=== PATIENT | male | born 1980 | race Caucasian/White ===

== ENCOUNTER 2021-01-03 06:00 | Outpatient (CLI) | payer OTHER, SELFPAY | END 2021-01-03 06:01 | disposition home or self-care (01) | LOC: SPT 12-11 10:45 | PROVIDERS: PCP Nurse Practitioner Family; Referring Provider Orthopaedic Surgery Pediatric Orthopaedic Surgery; Visit Provider Orthopaedic Surgery Pediatric Orthopaedic Surgery | DX: Z46.89 Encounter for fitting and adjustment of other specified devices (principal); S93.401S Sprain of unspecified ligament of right ankle, sequela; X58.XXXS Exposure to other specified factors, sequela | CPT/HCPCS: 97760; L1902 ==

== ENCOUNTER 2021-01-23 14:26 | Outpatient (CLI) | payer OTHER, SELFPAY ==
--- NOTE | 2021-01-23 14:33 | MR_ITS ---
WS: [id number] MRI RIGHT FOOT without CONTRAST. There is a very small amount of increased fluid signal adjacent to the anterior and posterior talofib ular ligaments. These are often have a normal striated appearance. No tears are identified. COMPARISON: RIGHT foot radiograph 01/03/2021 Multiplanar, multisequence imaging is performed without contrast. 2 markers are placed in the area of pain. One of these markers is lateral and adjacent to the peronea l tendons just distal to the fibular tip. There is an additional palpable marker placed along the janie sirena foot at the level of the tarsal bones. Peroneus longus and brevis tendons course normally. There is a very small amount of increased signal in the peroneal tendon sheath at the site of pain. No tear is identified. This may represent a mild t endinopathy. No fracture or abnormality at the fifth metatarsal tuberosity or the first metatarsal. There is no marrow edema or fractures. Marker over the dorsal midfoot demonstrates no underlying sign al abnormalities. There is no marrow edema or fluid in the tendon sheath. There is a small amount of fluid near the anterior and posterior talofibular ligaments. No tear is identified. Calcaneus and talus are negative. Normal calcaneus. Sinus tarsus fat is negative. MR/MR ankle RT wo con* [id number] IMPRESSION: 1. No fracture or marrow edema. 2. Very minimal increased signal in the peroneal tendon sheath at the site of pain over the lateral ankle. Cannot confirm tear in the peroneal tendons. Mild tendinitis may be present. 3. Small amount of fluid along the anterior and posterior talofibular ligament s. No tear is identified.
== END 2021-01-23 14:27 | disposition home or self-care (01) ==
LOC: RADSHAW 14:31
PROVIDERS: PCP Family Medicine; Visit Provider Podiatrist Foot & Ankle Surgery
DX: S93.401A Sprain of unspecified ligament of right ankle, initial encounter (principal); X58.XXXA Exposure to other specified factors, initial encounter
CPT/HCPCS: 73610; 73630; 73721

== ENCOUNTER 2021-05-13 16:30 | Outpatient (RCR) | payer OTHER, SELFPAY | END 2021-06-10 23:59 | disposition home or self-care (01) | LOC: SPT 16:30 | PROVIDERS: PCP Nurse Practitioner Family; Visit Provider Podiatrist Foot & Ankle Surgery | DX: M76.71 Peroneal tendinitis, right leg (principal) | CPT/HCPCS: 97162 ==

== ENCOUNTER 2022-07-02 11:00 | Outpatient (CLI) | payer OTHER, SELFPAY | END 2022-07-02 11:01 | disposition home or self-care (01) | LOC: SLEEP 07-06 11:04 | PROVIDERS: PCP Nurse Practitioner Family; Visit Provider Nurse Practitioner Family | DX: G47.10 Hypersomnia, unspecified (principal) | CPT/HCPCS: G0399 ==